=== PATIENT | male | born 1940 | race Caucasian/White ===

== ENCOUNTER 2020-03-07 10:34 | Outpatient (CLI) | payer MEDICARE, OTHER, SELFPAY ==
--- NOTE | 2020-03-07 | USCV_ITS ---
Antione Gaviria Age: 79 Gender: M : 1940 Exam Date: 03/07/2020 10:52 Ordering Phys: Laith Lemus MD (Andy) ([email or web address] [place] Technologist: Hiwot Love [place] [facility] [place] [facility] [place]ication: ABNORMAL CAROTID DUPLEX SCAN Risk Factors: Previous Vascular Surgery: L CEA Right Brachial BP: / Left Brachial BP: / Right Left Velocity (cm/s) Spectral Plaque Velocity (cm/s) Spectral Plaque Syst/Diast Broadening Syst/Diast Broadening 57.80/ 8.50 Prox CCA 65.30 / 10.90 67.00/ 13.80 Mid CCA 62.90 / 13.20 61.80/ 11.20 Distal CCA / 70.10/ 17.90 Prox ICA 65.10 / 20.40 78.60/ 22.20 Mid ICA 71.00 / 19.70 94.80/ 23.10 Distal ICA 62.60 / 24.50 139.30 ECA 82.30 1.41 ICA/CCA 1.13 Bi- Vertebral Antegrade directiona l / cm/s 92.40/ 9.30 cm/s Bi Subclavian 52.70 273.4 0 FINDINGS Comparison:. 10/01/19. Prior left CEA. Moderate plaque in the right carotid bifurcation with mild turbulence. Bidirectional right vertebral artery flow. No significant waveform abnormality in the right subclavian artery. Mild plaque left bifurcation with no recurrent stenosis. CONCLUSIONS Bilateral ICA stenosis less than 50%. No recurrent stenosis. Dr. Silvia Phillips DO (Electronically Signed) Final Date: 07 March 2020 14:11 S
== END 2020-03-07 10:35 | disposition home or self-care (01) ==
LOC: RADWPI 10:41
PROVIDERS: Family Provider Nurse Practitioner Family; PCP Family Medicine; Visit Provider Thoracic Surgery (Cardiothoracic Vascular Surgery)
DX: R94.39 Abnormal result of other cardiovascular function study (principal); I65.23 Occlusion and stenosis of bilateral carotid arteries
CPT/HCPCS: 93880

== ENCOUNTER → 2022-05-18 11:02 | Outpatient (BNVA) | payer MEDICARE, OTHER, SELFPAY | PROVIDERS: Family Provider Nurse Practitioner Family; PCP Nurse Practitioner Family; Visit Provider Internal Medicine Cardiovascular Disease | DX: I65.29 Occlusion and stenosis of unspecified carotid artery (principal); E11.9 Type 2 diabetes mellitus without complications; Z95.1 Presence of aortocoronary bypass graft; I25.10 Atherosclerotic heart disease of native coronary artery without angina pectoris; I10 Essential (primary) hypertension; E78.5 Hyperlipidemia, unspecified; Z79.84 Long term (current) use of oral hypoglycemic drugs | CPT/HCPCS: 99213; 99214 ==

== ENCOUNTER 2022-05-24 09:28 | Outpatient (CLI) | payer MEDICARE, OTHER, SELFPAY ==
[2022-05-24 09:38] VITALS: BMI 29.1
--- NOTE | 2022-05-24 10:38 | ECG_ITS ---
[facility] Test Date: 2022-05-24 Pat Name: Antione Gaviria Department: Room: Gender: Male Informatics Manager: : 1940 Requested By: Edgar Burns Order Number: [id number] Ari MD: Bartolome Echavarria M.D. Interpretive Statements Lexiscan: Procedure: At the baseline, the blood pressure was 137/59 mmHg with a heart rate of 83 bpm. The electrocardiogram showed normal sinus rhythm, left axis deviation with normal ST and T's. The Lexiscan was infused over a period of 20 seconds. A total of 0.4 mg of Lexiscan was infused. The stress phase was continued for a total of 5 minutes. Heart rate was at the end of stress phase was 91 bpm and a blood pressure of 156/74 mmHg. The EKG at the peak infusion revealed since normal sinus rhythm with no significant ST-T wave changes. PVCs were seen. Sestamibi was injected 20 seconds after the Lexiscan infusion. Blood pressure at the end of recovery phase was 162/71 mmHg with a heart rate of 90 bpm. Conclusion: 1. Normal EKG response to Lexiscan infusion 2. No Lexiscan induced chest pain or cardiac arrhythmia. 3. Normal blood pressure and heart rate response. 4. Sestamibi/sestamibi perfusion scan pending; see separate report. Electronically Signed On 06-09-2022 12:11:06 CDT by Bartolome Echavarria M.D. [email or web address]
--- NOTE | 2022-05-24 10:39 | NMCV_ITS ---
NM jannie perf SPECT r/s* [id number] Antione Gaviria Age: 81 Gender: M : 1940 Exam Date: 05/24/2022 10:48 Ordering Phys: Edgar Burns MD ([email or web address]) Technologist: LEANNA Tipton Exam Location: [facility] Indications: CABG STRESS TEST Please see separate stress test report in [facility] for full findings IMAGE PROTOCOL Rest/Stress 1 Lexiscan Day Radiopharmaceutical Dose (mCi) Administration Site Administered by Rest: Tc-99m 10.7 IV LEANNA Sin Sestamibi Stress:Tc-99m 32.5 IV LEANNA Tipton Sestamicheryl Rest: 24-May-2022 60 Discovery 630 Stress: 24-May-2022 30 Discovery 630 0.4mg Lexiscan. Images obtained in supine and prone position. SPECT RESULTS Technical Quality: Excellent Raw Data Analysis: Normal Image Corrections: No attenuation or motion correction applied Summed Stress Score: 0 Summed Rest Score: 1 Summed Difference Score: 0 PERFUSION FINDINGS There is persistently reduced radiotracer uptake in inferior wall consistent with medium sized prior infarct. No evidence of ischemia seen. FUNCTIONAL RESULTS (calculated via Gated SPECT) Stress Image LV EF (%): 50 Stress EDV (mL):129 TID: 0.96 Stress ESV (mL):65 FUNCTIONAL FINDINGS: There is normal left ventricular systolic function. IMPRESSIONS 1. 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 No evidence of ischemia noted. 2. LV systolic function is normal Bartolome Echavarria MD (Electronically Signed) Final Date: 24 May 2022 12:52 S
[2022-05-24] MEDS: regadenoson 0.4 Mg/5 ml Syringe IVP (11:18)
[2022-05-24 11:53] VITALS: BP 156/84; PULSE 89
== END 2022-05-24 09:29 | disposition home or self-care (01) ==
LOC: CDL 09:32
PROVIDERS: PCP Nurse Practitioner Family; Visit Provider Internal Medicine Cardiovascular Disease
DX: I25.10 Atherosclerotic heart disease of native coronary artery without angina pectoris (principal); Z95.1 Presence of aortocoronary bypass graft
CPT/HCPCS: 78452; 93017; A9500; J2785